=== PATIENT | female | born 1960 | race Caucasian/White ===

== ENCOUNTER 2017-06-13 03:54 | Observation (INO) | payer SELFPAY ==
[~2017-06-13] VITALS: Ht 167.6 cm; Wt 89.1 kg
[~2017-06-13 03:54] MED LIST: FLOMAX0.4 MG PO; HYDROCHLOROTHIA25 MG PO; PERCOCET 5/31 TABLET PO; ZOFRAN4 MG PO
[2017-06-13 04:56] LABS: BASOPHIL (%) 0.5 % (0-1); EOSINOPHIL (%) 2.1 % (0-5); EOSINOPHIL COUNT 0.2 K/uL (0-0.3); IMMATURE GRANULOCYTE (%) 0.7 % (0.0-0.7); LYMPHOCYTE (%) 33.6 % (15-42); MCH 30.4 PG (29.0-34.0); MCHC 34.9 G/DL (30.0-36.0); MONOCYTE COUNT 0.5 K/uL (0-0.8); NEUTROPHIL (%) 57.1 % (45-76); NEUTROPHIL COUNT 5.1 K/uL (1.8-6.4); PLATELET COUNT 279 K/uL (156-360); RBC DIS.WIDTH-CV 13.7 % (11.8-14.6); RBC DIS.WIDTH-SD 43.3 % (39-53); RED BLOOD COUNT 4.94 M/uL (3.80-5.20); WHITE BLOOD COUNT 8.9 K/uL (4.1-10.2)
[2017-06-13 05:06] LABS: ALBUMIN 4.7 g/dL (3.2-4.8); CHLORIDE 99 mEq/L (99-109); POTASSIUM 3.1 mEq/L (3.7-5.4); SODIUM 141 mEq/L (136-147)
[2017-06-13 05:09] LABS: GLUCOSE 121 mg/dL (70-99); TOTAL PROTEIN 8.2 g/dL (6.4-8.3)
[2017-06-13 05:10] LABS: TOTAL BILIRUBIN 1.2 mg/dL (0.0-1.0)
[2017-06-13 05:12] LABS: ALKALINE PHOSPHATASE 64 IU/L (3-129); CREATININE 1.2 mg/dL (0.6-1.3); GFR ESTIMATE (CALCULATED) 49 mL/min/
[2017-06-13 05:13] LABS: UREA NITROGEN (BUN) 18 mg/dL (9-23)
[2017-06-13 05:14] LABS: AST (GOT) 24 IU/L (2-34)
[2017-06-13 05:15] LABS: ALT (GPT) 33 IU/L (3-49)
[2017-06-13 06:17] LABS: APPEARANCE SL.HAZY ((CLEAR)); BILIRUBIN NEGATIVE; BLOOD SMALL; COLOR YELLOW ((YELLOW)); GLUCOSE (STRIP) NEGATIVE; KETONES NEGATIVE; LEUKOCYTES MODERATE; NITRITE NEGATIVE; PROTEIN (STRIP) NEGATIVE; SPECIFIC GRAVITY 1.011 (1.000-1.030); UROBILINOGEN 0.2 MG/DL (0.2-1.0)
[2017-06-13 06:23] LABS: BACTERIA RARE /HPF; EPITHELIAL CELLS 1+ /HPF; MUCUS NONE SEEN /LPF; RED BLOOD CELLS 0-5 /HPF (0-5); UCUL ADDED? YES
[2017-06-13] MEDS ORDERED: WELLBUTRIN XL150 MG PO (08:55)
[2017-06-13] MEDS ORDERED: XANAX1 MG PO (08:56)
[2017-06-13] MEDS ORDERED: ZESTORETIC 20-1 EAC1 PO (08:57)
[2017-06-13] MEDS ORDERED: MELATIN3 MG PO (09:00)
[2017-06-13 09:26] LABS: TROP-I INTERPRETATION NEGATIVE; TROPONIN-I 0.04 ng/mL (0.0-0.30)
[2017-06-13 10:28] VITALS: BP 165/79
[2017-06-13 14:24] LABS: TROP-I INTERPRETATION NEGATIVE; TROPONIN-I 0.04 ng/mL (0.0-0.30)
[2017-06-13 15:48] VITALS: BP 137/72
[2017-06-13 19:37] VITALS: BP 173/80
[2017-06-13 20:25] LABS: TROP-I INTERPRETATION NEGATIVE; TROPONIN-I 0.05 ng/mL (0.0-0.30)
[2017-06-14 00:26] VITALS: BP 108/58
[2017-06-14 04:17] VITALS: BP 110/56
[2017-06-14 05:45] LABS: HEMATOCRIT 39.1 % (36.0-46.0); HEMOGLOBIN 13.3 G/DL (11.9-15.5); MCH 30.1 PG (29.0-34.0); MCV 88.5 FL (83-99); PLATELET COUNT 251 K/uL (156-360); RBC DIS.WIDTH-CV 13.8 % (11.8-14.6); RBC DIS.WIDTH-SD 44.5 % (39-53); RED BLOOD COUNT 4.42 M/uL (3.80-5.20); WHITE BLOOD COUNT 7.5 K/uL (4.1-10.2)
[2017-06-14 06:09] LABS: CHLORIDE 102 MEQ/L (99-109); GFR ESTIMATE (CALCULATED) > 59 mL/min/; GLUCOSE 104 mg/dL (70-99); SODIUM 142 MEQ/L (136-147); UREA NITROGEN (BUN) 12 mg/dL (9-23)
[2017-06-14 06:14] LABS: POTASSIUM 3.9 MEQ/L (3.7-5.4)
[2017-06-14 07:26] VITALS: BP 134/63
[2017-06-14 10:25] LABS: HDL CHOLESTEROL 36 MG/DL (Desirable>=50); LDL CHOLESTEROL 175 mg/dL (Desirable<100); NON-HDL CHOLESTEROL 224 mg/dL (Desirable<160); TOTAL CHOLESTEROL 260 mg/dL (Desirable<200); TRIGLYCERIDES 243 MG/DL (Normal: <150)
[2017-06-14 11:42] VITALS: BP 158/73
[2017-06-14 12:19] LABS: HEMOGLOBIN A1c (GLYCOHEMOGLOB) 6.3 % (Below 5.7)
[2017-06-14] MEDS ORDERED: AMLODIPINE BESY10 MG PO (14:08)
[2017-06-14] MEDS ORDERED: ASPIR-LOW81 MG PO (14:09)
[2017-06-14] MEDS ORDERED: CEFTIN500 MG PO (14:18)
[2017-06-14] MEDS ORDERED: FLORASTOR250 MG PO (14:19)
[2017-06-14 15:20] VITALS: BP 133/88
== END 2017-06-14 18:42 | disposition home or self-care (01) ==
LOC: EME → EDBD 03:54 → EME 03:54 → EDOF 08:09 → 4SOUTH 08:09 → ENRESERV 08:14 → EDOF 09:11 → 5WEST 10:17 → ENRESERV 06-14 07:28 → 4SOUTH 06-14 07:42
PROVIDERS: Emergency Medicine; Internal Medicine
DX: R00.1 Bradycardia, unspecified (principal); N39.0 Urinary tract infection, site not specified; I10 Essential (primary) hypertension; F41.9 Anxiety disorder, unspecified; E87.6 Hypokalemia; R53.83 Other fatigue; F17.200 Nicotine dependence, unspecified, uncomplicated; Z82.49 Family history of ischemic heart disease and other diseases of the circulatory system; Z87.442 Personal history of urinary calculi; Z88.2 Allergy status to sulfonamides; Z80.49 Family history of malignant neoplasm of other genital organs; Z83.3 Family history of diabetes mellitus; Z81.1 Family history of alcohol abuse and dependence
CPT/HCPCS: 71045; 80048; 80053; 80061; 81003; 82948; 83036; 84484; 85025; 85027; 87086; 93005; 93306; 99281; 99284; G0378; J0696; J1650; J2405; J3480; J7030